=== PATIENT | male | born 1965 ===

== ENCOUNTER 2018-06-21 21:06 | Inpatient (IN) ==
[~2018-06-21 21:06] MED LIST: ceFAZolin 2 GM Premix Inj 2 GM/50 ML PIGGYBACK IV.SIG ONE
[2018-06-21] MEDS ORDERED: Propofol 1000 mg/100 ml Inj 1,000 MG/100 ML BOTTLE ONE (21:15)
[2018-06-21] MEDS ORDERED: Bisacodyl 10 MG Supp RECTAL PRN (21:29)
[2018-06-21] MEDS ORDERED: Post-op Orders (for Pharmacy) OTHER ONE (21:29)
[2018-06-21] MEDS ORDERED: Naloxone Inj 0.4 MG/ML Vial IV.PUSH PRN (21:29)
[2018-06-21] MEDS ORDERED: fentaNYL 10 mcg/mL Premix Drip 2,500 MCG/250 ML BAG IV.SIG PRN (21:31)
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
[2018-06-21 21:42] LABS: Baso % (Auto) 0.4 % (0.0-2.0); Eos # (Auto) 0.3 th/mm3 (0.0-0.4); Eos % (Auto) 3.2 % (0.0-4.0); Hematocrit 48.1 % (39.0-51.0); Hemoglobin 16.8 gm/dL (13.0-17.0); Lymph # (Auto) 3.8 th/mm3 (1.0-4.8); Lymph % (Auto) 38.3 % (9.0-44.0); Mean Corpuscular HGB Conc 34.8 % (32.0-36.0); Mean Corpuscular Hemoglobin 32.8 pg (27.0-34.0); Mean Corpuscular Volume 94.3 fL (80.0-100.0); Mono # (Auto) 1.1 th/mm3 (0.0-0.9); Mono % (Auto) 11.5 % (0.0-8.0); Neut # (Auto) 4.6 th/mm3 (1.8-7.7); Neut % (Auto) 46.6 % (16.0-70.0); Platelet Count 272 th/mm3 (150-450); Red Cell Distribution Width 13.5 % (11.6-17.2); White Blood Count 9.8 th/mm3 (4.0-11.0)
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
[2018-06-21 21:57] LABS: Activated Partial Thrombo Time 28.9 sec (23.4-31.7); INR 0.9 Ratio; Prothrombin Time 9.4 sec (9.8-11.6)
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
[2018-06-21] MEDS: Sod Chloride 0.9% Inj 1,000 ML IV.CONT SCH (22:28)
[2018-06-21 22:38] LABS: ABG Base Excess -4.4 mmol/L (-2-2); ABG PCO2 40 mmHg (38-42); ABG PO2 180 mmHg (61-120)
[2018-06-21 23:05] LABS: Amphetamine Screen,Urine Neg (Neg); Barbiturate Screen,Urine Neg (Neg); Cannabinoid Screen,Urine Neg (Neg); Cocaine Screen,Urine Neg (Neg)
[2018-06-21 23:10] LABS: Opiate Screen,Urine Neg (Neg)
[2018-06-22] MEDS: Propofol 1000 mg/100 ml Inj 1,000 MG/100 ML BOTTLE IV.CONT PRN ×2 (01:12→06:29)
[2018-06-22 06:08] LABS: Baso % (Auto) 0.2 % (0.0-2.0); Eos # (Auto) 0.2 th/mm3 (0.0-0.4); Eos % (Auto) 1.3 % (0.0-4.0); Hemoglobin 15.4 gm/dL (13.0-17.0); Lymph % (Auto) 15.8 % (9.0-44.0); Mean Corpuscular HGB Conc 34.3 % (32.0-36.0); Mean Corpuscular Hemoglobin 32.5 pg (27.0-34.0); Mean Corpuscular Volume 94.9 fL (80.0-100.0); Mean Platelet Volume 8.8 fL (7.0-11.0); Mono # (Auto) 1.6 th/mm3 (0.0-0.9); Mono % (Auto) 12.7 % (0.0-8.0); Platelet Count 222 th/mm3 (150-450); Red Blood Count 4.75 mil/mm3 (4.50-5.90); Red Cell Distribution Width 13.9 % (11.6-17.2); White Blood Count 12.9 th/mm3 (4.0-11.0)
[2018-06-22 06:20] LABS: ABG Base Excess -3.1 mmol/L (-2-2); ABG PCO2 45 mmHg (38-42); ABG PO2 299 mmHg (61-120)
[2018-06-22 06:22] LABS: Anion Gap 8 meq/L (5-15); Blood Urea Nitrogen 9 mg/dL (7-18); Calcium 7.9 mg/dL (8.5-10.1); Carbon Dioxide 23.8 meq/L (21.0-32.0); Chloride 109 meq/L (98-107); Glomerular Filtration Rate Greater Than 89 mL/min (>89); Glucose,Random 86 mg/dL (74-106); Potassium 3.7 meq/L (3.5-5.1); Sodium 141 meq/L (136-145)
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
[2018-06-22] MEDS ORDERED: Chlorhexidine 0.12% Oral Kit 15 ML UDC OROPHARYNG SCH (08:00)
[2018-06-22] MEDS: Sod Chloride 0.9% Inj 1,000 ML IV.CONT SCH (10:30)
[2018-06-22] MEDS: Senna/Docusate Sodium 8.6/50 MG Tablet PO SCH ×2 (10:35→20:05)
[2018-06-22] MEDS: Multivitamin Inj 10 ML, Thiamine Inj 100 MG, Folic Acid Inj 1 MG in Sodium Chlor 0.9% I... IV.SIG SCH (11:28)
[2018-06-22] MEDS: Oral Hygiene Kit OROPHARYNG SCH ×2 (11:29→15:51)
[2018-06-22] MEDS ORDERED: Acetaminophen 325 MG Tablet PO PRN (13:53)
[2018-06-22] MEDS: MethylPREDNISolone Sod Succinate Inj 125 MG/2 ML Vial IV.PUSH SCH ×2 (16:44→21:20)
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
[2018-06-23] MEDS: Oral Hygiene Kit OROPHARYNG SCH ×2 (00:23→04:07)
[2018-06-23] MEDS: MethylPREDNISolone Sod Succinate Inj 125 MG/2 ML Vial IV.PUSH SCH ×2 (04:06→09:00)
[2018-06-23 05:09] LABS: Baso % (Auto) 0.2 % (0.0-2.0); Hematocrit 43.2 % (39.0-51.0); Hemoglobin 14.8 gm/dL (13.0-17.0); Lymph # (Auto) 0.4 th/mm3 (1.0-4.8); Lymph % (Auto) 3.2 % (9.0-44.0); Mean Corpuscular HGB Conc 34.3 % (32.0-36.0); Mean Corpuscular Hemoglobin 32.6 pg (27.0-34.0); Mean Corpuscular Volume 95.3 fL (80.0-100.0); Mono # (Auto) 0.3 th/mm3 (0.0-0.9); Neut # (Auto) 12.3 th/mm3 (1.8-7.7); Neut % (Auto) 94.6 % (16.0-70.0); Platelet Count 203 th/mm3 (150-450); Red Blood Count 4.53 mil/mm3 (4.50-5.90); Red Cell Distribution Width 13.6 % (11.6-17.2)
[2018-06-23 06:51] LABS: Anion Gap 5 meq/L (5-15); Blood Urea Nitrogen 7 mg/dL (7-18); Calcium 8.6 mg/dL (8.5-10.1); Chloride 105 meq/L (98-107); Glomerular Filtration Rate Greater Than 89 mL/min (>89); Glucose,Random 218 mg/dL (74-106); Potassium 3.9 meq/L (3.5-5.1); Sodium 137 meq/L (136-145)
--- NOTE | 2018-06-23 06:52 | XR ---
EXAM DATE: 06/23/2018 6:44 AM EST AGE/SEX: 89 years / Male INDICATIONS: Shortness of breath. CLINICAL DATA: This is the patient's subsequent encounter. Patient reports that signs and symptoms h ave been present for 3 days and indicates a pain score of Nonresponsive. MEDICAL/SURGICAL HISTORY: Non-responsive. Non-responsive. [place] [facility] [place]. . FINDINGS: A single AP view of the chest demonstrates interval extubation and removal of the nasogastric tube. A new consolidation is seen within the left base. Right lung is clear. No effusions. Heart is normal i n size. CONCLUSION: Left basilar consolidation with a radiographic appearance suggesting atelectasis. Electronically signed by: Edgar Mandel MD Board Certified Radiologist 06/23/2018 6:51 AM EST
[2018-06-23] MEDS ORDERED: Heparin - SQ 10,000 UNITS/ML Vial ONE (07:39)
[2018-06-23 08:51] VITALS: BP 132/77; PULSE 70; RESP 16; TEMP 98.1; O2SAT 94
[2018-06-23] MEDS: Senna/Docusate Sodium 8.6/50 MG Tablet PO SCH (08:54)
[2018-06-23] MEDS ORDERED: Budesonide-Formoterol 160/4.5 MCG 6 GM Inhaler INH SCH (09:00)
[2018-06-23] MEDS: Multivitamin Inj 10 ML, Thiamine Inj 100 MG, Folic Acid Inj 1 MG in Sodium Chlor 0.9% I... IV.SIG SCH (11:10)
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
== END 2018-06-23 11:33 | disposition home or self-care (01) | DRG 157 ==
LOC: NEPI 21:06 → EDBD 21:29 → NEDA 21:41 → N03 21:44
PROVIDERS: ADMIT Surgery; ATTEND Surgery
CPT/HCPCS: 31500; 36600; 43753; 70450; 70486; 71010; 71045; 72125; 72170; 80048; 80307; 82805; 85025; 85610; 85730; 86850; 86900; 86901; 87641; 94002; 94003; 94640; 94656; 94657; 94664; 94665; 99285; 99291; G0390; J0690; J1644; J2704; J2930; J3010; J3411; J7030; J7040